=== PATIENT | female | born 1980 | race Caucasian/White ===

== ENCOUNTER 2022-10-18 14:17 | Outpatient (AMB) | payer OTHER, SELFPAY ==
--- NOTE | 2022-10-18 14:18 | AM.OFFWIN_ITS ---
Intake Intake Visit Reasons: [employer] RT Mid [place] Pain Allergies fluticasone [Advair Diskus] Allergy (Unknown, Verified 06/12/16 00:00) salmeterol [Advair Diskus] Allergy (Unknown, Verified 06/12/16 00:00) No Known Allergies Allergy (Unverified 11/27/19 16:47) Do you need a note to return to daycare/school/sports/work: No HPI HPI Comments History of Present Illness Details [age] yo f Hx substance use d/o on suboxone tapering down presenting w/ RUQ pain X 6 days. Reports pain to RUQ used to be intermittent in nature now it is constant , she says she gets sharp stabbing pains intermittently that are very severe, she reports that she has a high pain tolerance but this is very uncomfortable. Some associated nausea. Sometimes worsened by food. Patient still has her gallbladder and her appendix. Denies fevers, chills, chest pain, shortness of breath, vomiting, changes in urination or bowel habits. No history of kidney stones. Physical exam slight discomfort with palpation to right upper quadrant. Concerns for possible cholecystitis versus cholelithiasis versus musculoskeletal. Could also be a kidney stone. No signs of acute abdomen. Called in expect to [facility] at 1442, patient will go via private vehicle. Educated patient on diagnosis and treatment plan, answered all question, patient verbalizes understanding. At this time patient will be discharged home, advised to return with new or worsening symptoms. Educated on worrisome signs and symptoms and when to return. At this time I feel comfortable discharge home. Review of Systems Const Details: Constitutional : No Weight loss, No Fever, No Chills, No Fatigue, No Malaise ENT/Mouth : No sore throat, No Rhinorrhea Eyes: No Eye Pain, No Swelling, No Redness Cardiovascular : No Chest Pain, No SOB, No Dyspnea on Exertion, No Orthopnea, No Edema, No Palpitations Respiratory : No Cough, No Sputum, No Wheezing Gastrointestinal : No Nausea, No Vomiting, No Diarrhea, No Constipation, + abdominal Pain, No Hematochezia, No Melena Genitourinary : No Dysuria, No Urinary Frequency, No Hematuria, Musculoskeletal : No joint pain, No Myalgias, No Joint Swelling Skin : No Skin Lesions, No rash Neuro : No Weakness, No Numbness, No Dizziness, No Headache Psych : No Anxiety/Panic, No Depression All other systems reviewed and are negative All systems reviewed & are unremarkable except as noted in HPI and below Physical Exam Vital Signs: Pulse 88 R: 16/ minute Breathing unlabored Appearance: Alert.? Oriented X3.? No acute distress.? Head: Normocephalic, atraumatic, no step-offs or deformities Eyes: Pupils equal, round and reactive to light.? ENT: Pharynx normal.? Neck: Normal inspection.? Neck supple.? CVS: Normal heart rate and rhythm.? Pulses normal.? Respiratory: No respiratory distress.? Breath sounds normal.? Abdomen: Soft and + mild discomfort to RUQ.? Skin: Skin warm and dry.? Normal skin color.? Normal skin turgor.? Extremities: No lower extremity edema.? No calf ttp. 5/5 strength to bilateral upper and lower extremities Neuro: Oriented X 3.? No motor deficit.? No sensory deficit. CN 2-12 intact Assessment & Plan Assessment & Plan (1) RUQ pain: Code(s): R10.11 - Right upper quadrant pain Plan Take your medications as prescribed. If you were prescribed antibiotics today, it is important that you take your medication to their entirety, do not skip any doses, do not finish them early. Follow-up with your primary care provider this week. Return to the emergency department with new or worsening symptoms. Such as fevers, chills, chest pain, shortness of breath, nausea, vomiting, dizziness, headache, vision changes, lethargy In case of emergency call 911 Coding Level of Care Code New Pt Level 3 (48673) Diagnoses RUQ pain R10.11
== END 2022-10-18 14:51 | disposition home or self-care (01) ==
PROVIDERS: PCP Family Medicine; Visit Provider Physician Assistant
DX: R10.11 Right upper quadrant pain (principal)
CPT/HCPCS: 99203